=== PATIENT | female | born 1995 | race Caucasian/White ===

== ENCOUNTER 2021-05-17 00:40 | Emergency (ER) | payer OTHER ==
[~2021-05-17] VITALS: Ht 162.6 cm; Wt 63.5 kg
[2021-05-17] MEDS ORDERED: DESVENLAFAXINE25 MG PO (00:56)
[2021-05-17] MEDS ORDERED: LAMO25 PO (00:56)
[2021-05-17] MEDS ORDERED: TRAZ50 PO (00:56)
[2021-05-17] MEDS ORDERED: AVAPRO150 MG PO (00:57)
[2021-05-17] MEDS ORDERED: Inderal40 MG PO (00:58)
[2021-05-17] MEDS ORDERED: HYDHCL25 PO (02:42)
== END 2021-05-17 02:44 | disposition home or self-care (01) ==
LOC: ER 00:40
DX: F41.0 Panic disorder [episodic paroxysmal anxiety] (principal); F10.10 Alcohol abuse, uncomplicated; I10 Essential (primary) hypertension; Z88.0 Allergy status to penicillin; Z79.899 Other long term (current) drug therapy
CPT/HCPCS: A9270